=== PATIENT | male | born 1995 | race Caucasian/White ===

== ENCOUNTER 2020-06-11 19:25 | Emergency (ER) | payer SELFPAY | END 2020-06-11 21:20 | disposition home or self-care (01) | LOC: EDBD → CSHERS 19:25 | DX: Z20.6 Contact with and (suspected) exposure to human immunodeficiency virus [HIV] (principal) | CPT/HCPCS: 99283 ==

== ENCOUNTER 2020-07-04 09:26 | Observation (INO) | payer SELFPAY ==
[2020-07-04] MEDS ORDERED: Ketorolac Tromethamine 15 MG/ML VIAL ONE (10:10)
[2020-07-04] MEDS ORDERED: Acetaminophen 500 MG TAB ONE (10:10)
[2020-07-04 10:55] LABS: Mean Corpuscular HGB CONC 34.9 g/dL (32.0-36.0); Mean Corpuscular Hemoglobin 30.7 pg (27.0-33.0); Mean Platelet Volume 9.8 fl (7.4-10.4); Platelet Count 364 10x3/uL (150-450); RBC Distribution Width 13.2 % (11.5-14.5); Red Blood Cell (RBC) Count 4.24 10x6/uL (4.32-5.72); White Blood Cell (WBC) Count 13.5 10x3/uL (3.5-10.5)
[2020-07-04 11:01] LABS: ALT (SGPT) 135 U/L (8-55); AST (SGOT) 102 U/L (5-34); Albumin 3.6 g/dL (3.5-5.0); Alkaline Phosphatase 96 U/L (40-110); Anion Gap 15 mmol/L (10-20); BUN (Urea Nitrogen) 7 mg/dL (8.9-20.6); Bilirubin, Total 0.5 mg/dL (0.2-1.2); CK (CPK) 111 U/L (30-200); Calc. Creatinine Clearance 0 mL/min (70-130); Calcium 8.8 mg/dL (7.8-10.44); Carbon Dioxide 29 mmol/L (22-29); Chloride 100 mmol/L (98-107); Globulin 3.6 g/dL (2.4-3.5); Glucose 87 mg/dL (70-105); Potassium 3.6 mmol/L (3.5-5.1); Protein, Total 7.2 g/dL (6.0-8.3); Sodium 140 mmol/L (136-145)
[2020-07-04 11:14] LABS: Bilirubin Neg (Negative); Blood, Urine Negative (Negative); Clarity Clear (Clear); Glucose, Urine (Dipstick) Normal (Negative); Ketone, Urine Negative (Negative); Leukocyte Negative (Negative); Nitrite Negative (Negative); Protein, Urine (Dipstick) 15 mg/dl (Neg-Trace)
[2020-07-04 11:19] LABS: HIV (1/2) Antibody/Antigen Non-Reactive (NonReactive); HIV 1/2 INDEX 0.14 S/CO (<1.00)
[2020-07-04] MEDS ORDERED: Cefepime 2 GM VIAL ONE (11:59)
[2020-07-04 12:08] LABS: SARS-CoV-2 NAA Rapid Test Not Detected (NotDetected)
[2020-07-04 12:53] LABS: MDiff Complete? YES
[2020-07-04 13:03] LABS: Band 2 % (5-11); Lymphocytes 32 % (21-51); Monocytes 4 % (0-10); Neutrophil 44 % (42-75); Reactive Lymphocytes 18 % (0-10)
[2020-07-04 13:05] LABS: Platelet Morphology Comment Appears Adequate
[2020-07-04 13:06] LABS: RBC Morphology Normal
[2020-07-04] MEDS ORDERED: Ondansetron PF 4 MG/2 ML Vial IVP PRN (17:08)
[2020-07-04] MEDS ORDERED: Senokot S 8.6-50 MG TAB PO PRN (17:08)
[2020-07-04 17:51] VITALS: BMI 25.7
[2020-07-04] MEDS: Sodium Chloride 0.9% 1,000 ML IV SCH (18:08)
[2020-07-04] MEDS: Acetaminophen 325 MG TAB PO PRN (20:33)
[2020-07-04] MEDS ORDERED: ADDERALL 10 MG PO SCH (21:00)
[2020-07-05] MEDS: Acetaminophen 325 MG TAB PO PRN ×3 (01:05→20:18)
[2020-07-05] MEDS: Sodium Chloride 0.9% 1,000 ML IV SCH ×4 (03:34→22:05)
[2020-07-05 05:43] LABS: Mean Corpuscular HGB CONC 33.8 g/dL (32.0-36.0); Mean Corpuscular Hemoglobin 30.1 pg (27.0-33.0); Mean Corpuscular Volume 88.8 fl (81.2-95.1); Mean Platelet Volume 9.5 fl (7.4-10.4); Platelet Count 335 10x3/uL (150-450); RBC Distribution Width 13.2 % (11.5-14.5); Red Blood Cell (RBC) Count 3.66 10x6/uL (4.32-5.72); White Blood Cell (WBC) Count 11.3 10x3/uL (3.5-10.5)
[2020-07-05 05:44] LABS: MDiff Complete? YES
[2020-07-05 05:58] LABS: ALT (SGPT) 120 U/L (8-55); AST (SGOT) 88 U/L (5-34); Albumin 2.9 g/dL (3.5-5.0); Alkaline Phosphatase 85 U/L (40-110); Anion Gap 14 mmol/L (10-20); BUN (Urea Nitrogen) 6 mg/dL (8.9-20.6); Bilirubin, Total 0.6 mg/dL (0.2-1.2); Calc. Creatinine Clearance 156 mL/min (70-130); Calcium 7.8 mg/dL (7.8-10.44); Carbon Dioxide 25 mmol/L (22-29); Chloride 107 mmol/L (98-107); Globulin 2.9 g/dL (2.4-3.5); Glucose 89 mg/dL (70-105); Potassium 3.6 mmol/L (3.5-5.1); Protein, Total 5.8 g/dL (6.0-8.3); Sodium 142 mmol/L (136-145)
[2020-07-05 06:00] LABS: MONO NEGATIVE CONTROL ZONE White (Negative) (White); MONO POSITIVE CONTROL Pink Line (Positive) (PINK/RED); Mononucleosis NEGATIVE (NEGATIVE)
[2020-07-05 06:07] LABS: Band 2 % (5-11); Lymphocytes 25 % (21-51); Monocytes 2 % (0-10); Neutrophil 43 % (42-75); Reactive Lymphocytes 28 % (0-10)
[2020-07-05 06:08] LABS: Reflex for Review?? YES
[2020-07-05] MEDS: Enoxaparin Sodium 40 MG/0.4 ML SYRINGE SC SCH (08:24)
[2020-07-05] MEDS ORDERED: Bisacodyl 5 MG TAB PO PRN (11:16)
[2020-07-05] MEDS ORDERED: Senokot 8.6 MG TAB PO PRN (11:17)
[2020-07-05] MEDS ORDERED: Sodium Chloride 0.9% 1,000 ML IV SCH (11:30)
[2020-07-05 11:33] LABS: HBCM Index 0.14 S/CO (0-0.79); HBSAg Index 0.28 S/CO (0-0.99); Hep A IgM AB Non-Reactive (NonReactive); Hep A IgM S/CO 0.13 S/CO (0-0.79); Hep B Surf Ag Non-Reactive S/CO (NonReactive); Hep C IgG Ab Non-Reactive (NonReactive); Hep C Index 0.29 S/CO (0-0.79); Hepatitis B Core IgM Abs Non-Reactive (NonReactive)
[2020-07-05] MEDS ORDERED: Melatonin 3 MG TAB PO PRN (21:33)
[2020-07-06] MEDS: Acetaminophen 325 MG TAB PO PRN (04:17)
[2020-07-06 04:26] LABS: Hemoglobin 10.5 g/dL (13.5-17.5); Mean Corpuscular HGB CONC 33.9 g/dL (32.0-36.0); Mean Corpuscular Hemoglobin 30.2 pg (27.0-33.0); Mean Corpuscular Volume 89.1 fl (81.2-95.1); Mean Platelet Volume 9.5 fl (7.4-10.4); Platelet Count 380 10x3/uL (150-450); RBC Distribution Width 13.1 % (11.5-14.5); Red Blood Cell (RBC) Count 3.48 10x6/uL (4.32-5.72)
[2020-07-06 04:27] LABS: MDiff Complete? YES
[2020-07-06 04:36] LABS: ALT (SGPT) 115 U/L (8-55); AST (SGOT) 85 U/L (5-34); Alkaline Phosphatase 86 U/L (40-110); Anion Gap 14 mmol/L (10-20); BUN (Urea Nitrogen) 7 mg/dL (8.9-20.6); Bilirubin, Total 0.6 mg/dL (0.2-1.2); Calc. Creatinine Clearance 141 mL/min (70-130); Carbon Dioxide 23 mmol/L (22-29); Chloride 106 mmol/L (98-107); Globulin 2.8 g/dL (2.4-3.5); Glucose 98 mg/dL (70-105); Potassium 3.7 mmol/L (3.5-5.1); Protein, Total 5.8 g/dL (6.0-8.3); Sodium 139 mmol/L (136-145)
[2020-07-06 04:58] LABS: Band 2 % (5-11); Lymphocytes 32 % (21-51); Metamyelocyte 1 % (0-0); Monocytes 7 % (0-10); Neutrophil 47 % (42-75); Reactive Lymphocytes 11 % (0-10)
[2020-07-06] MEDS: Sodium Chloride 0.9% 1,000 ML IV SCH ×3 (06:30→11:10)
[2020-07-06] MEDS: Enoxaparin Sodium 40 MG/0.4 ML SYRINGE SC SCH (09:43)
[2020-07-06 11:58] VITALS: BP 124/82; TEMP 98.7
== END 2020-07-06 13:48 | disposition home or self-care (01) ==
LOC: CSHERS 09:26 → INTOOBSV 17:25 → EDBD 17:25 → CSHTELE 17:25
PROVIDERS: ADMIT Internal Medicine; ATTEND Internal Medicine
DX: R65.10 Systemic inflammatory response syndrome (SIRS) of non-infectious origin without acute organ dysfunction (principal); R74.01 Elevation of levels of liver transaminase levels; F90.9 Attention-deficit hyperactivity disorder, unspecified type; Z79.899 Other long term (current) drug therapy; Z20.822 Contact with and (suspected) exposure to COVID-19
CPT/HCPCS: 0240U; 36415; 71045; 71275; 80053; 80074; 81003; 82550; 83605; 84145; 84443; 85025; 85060; 85379; 86308; 87040; 87389; 93005; 96365; 96366; 96372; 96375; G0378; J0692; J1650; J1885; J7050